=== PATIENT | female | born 1970 | race Caucasian/White ===

== ENCOUNTER → 2022-06-11 09:20 | Outpatient (CLI) | payer OTHER, SELFPAY ==
--- NOTE | 2022-06-11 | DI.RAD.S_ITS ---
PROCEDURE: XR FOOT LT MIN 3V INDICATIONS: PAIN IN LEFT FOOT TECHNIQUE: 3 views of the foot were acquired. COMPARISON: None. FINDINGS: Bones: No fractures or dislocations. No suspicious bony lesions. 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 Soft tissues: No tibiotalar joint effusion. Achilles tendon appears normal. IMPRESSION: No acute osseous abnormalities. Mild degenerative joint disease. Dictated by: Barbara Banegas M.D. on 06/11/2022 at 13:00 Approved by: Barbara Banegas M.D. on 06/11/2022 at 13:04
== END ==
PROVIDERS: Referring Provider Podiatrist; Visit Provider Podiatrist
DX: M19.072 Primary osteoarthritis, left ankle and foot (principal); M79.672 Pain in left foot
CPT/HCPCS: 73630

== ENCOUNTER 2024-05-04 07:15 | Day surgery (SDC) | payer OTHER, SELFPAY ==
--- NOTE | 2024-05-04 | PATH_ITS ---
[facility] Accession Number: [id number] No. of containers..02 Tissue . 01 Material submitted: . PART A: small bowel - SMALL BOWEL PART B: gastrointestinal site - GASTRIC . 01 Clinical history: . B: R/O H P . 01 Diagnosis: A. Duodenum, biopsy: - Small bowel mucosa with preserved villous architecture, negative for histologic evidence of celiac disease. - Negative for dysplasia or malignancy. -- B. Stomach, biopsy: - Oxyntic gastric mucosa with unremarkable histology. - No H. Pylori like organisms identified (on the H/E- stained sections). - Negative for gastritis, intestinal metaplasia, dysplasia, or malignancy. ---- As part of our intradepartmental quality assurance associate, Dr. Nickerson reviewed part A and agreed with the above diagnosis. TXN 05/06/2024 1357 Local . 01 Electronically signed: . Carlos Rooney MD, Pathologist NPI- [id number] . 01 Gross description: . A. Received in formalin with two patient identifiers and small bowel, is a single lema soft tissue fragment 0.5 cm in greatest dimension. Submitted in cassette A1. B. Received in formalin with two patient identifiers and gastric, are two lema and brown soft tissue fragments 0.3 to 0.4 cm in greatest dimension. Submitted in cassette B1. ([id number]) /GRACIE 05/05/2024 0830 Local . 01 Pathologist provided ICD-10: Z86.0101, K21.9, R10.13, Z80.0 . 01 CPT . 664873, 733127 Specimen Comment: A courtesy copy of this report has been sent to [phone] Performed at: 01 [facility] [address] [address], [place], [place] [id number] MD Edmund Arriaza MD Phone: [phone]
[2024-05-04 07:41] VITALS: BP 114/75; PULSE 66; RESP 17; TEMP 36.1; O2SAT 99
--- NOTE | 2024-05-04 08:24 | PM.HP.1 ---
History of Present Illness History of Present Illness Date Patient Seen: 05/04/24 Chief complaint: SDC Narrative: Dyspepsia, GE reflux, and history of adenomatous colon polyps PFSH Social History Smoking Status: Never smoker alcohol intake: never Meds Home Medications and Allergies Home Medications Medication Instructions Recorded Confirmed Type estradiol 0.025 mg/24 hr weekly 1 patch topical 05/04/24 History transdermal patch progesterone micronized 200 mg 200 mg PO ONCE PM 05/04/24 05/04/24 History capsule Allergies Allergy/AdvReac Type Severity Reaction Status Date / Time No Known Drug Allergies Allergy Verified 05/04/24 07:28 Exam Vital Signs (past 8 hours): - 05/04/24 07:41 Temperature 97 F L Pulse Rate 66 Respiratory Rate 17 Blood Pressure 114/75 Pulse Oximetry 99 Oxygen Delivery Method Room Air Oxygen Delivery Method Room Air Narrative Exam Narrative: Oropharynx free of lesions Assessment & Plan Assessment & Plan narrative: Dyspepsia and GE reflux need for upper endoscopy. Risks, benefits, alternatives have been explained. History of adenomatous colon polyp. Repeat colonoscopy necessary. Risks, benefits, alternatives have been explained. Time-Based Coding :: [TOTAL MINUTES] spent with patient and on the chart (including review of chart, obtaining history, exam, reviewing outside data, placing orders, documenting exam and treatment plan, and counseling patient) on [DATE].
--- NOTE | 2024-05-04 08:25 | PM.OP.EC ---
Operative Date/Time/Diagnoses Date of procedure: 05/04/24 Pre-op diagnosis: See indication and findings Procedure & Clinicians Study performed: EGD and colonoscopy Indications: Dyspepsia GE reflux and history of adenomatous colon polyps Surgeon: Miguel Perrin Procedure Notes Procedure in detail: After informed consent was obtained the patient was placed in left lateral decubitus position. Video upper scope was placed into the oropharynx and with the patient's help swallowed into the esophagus. The esophagus stomach and duodenal were carefully examined. On withdrawal retroflexed view the GE junction was performed. The scope was removed. The patient tolerated procedure well. The patient was then turned the colonoscope substituted. This is passed through the rectum to the cecum. Preparation was good. On slow withdrawal mucosa was carefully examined. The scope was removed. The patient tolerated the procedure well. Blood loss none Complications none Sedation mac Findings EGD 1. Completely normal esophagus with normal squamocolumnar junction 2. Patchy gastric erythema in the antrum. Biopsies taken to rule out Helicobacter 3. Normal duodenal bulb and sweep. Biopsies taken to rule out celiac Colonoscopy 1. Normal colonoscopy to cecum Patient should have follow-up colonoscopy in 5-7 years. We will follow up on the biopsies.
[2024-05-04 09:02] VITALS: BP 100/63; PULSE 74; RESP 14; TEMP 36.2; O2SAT 95
[2024-05-04 09:07] VITALS: BP 102/69; PULSE 63; RESP 16; TEMP 36.2; O2SAT 95
[2024-05-04 09:13] VITALS: BP 106/65; PULSE 87; RESP 16; TEMP 36.2; O2SAT 98
[2024-05-04 09:26] VITALS: BP 107/73; PULSE 61; RESP 16; TEMP 36.2; O2SAT 98
== END 2024-05-04 09:41 | disposition home or self-care (01) ==
PROVIDERS: Referring Provider Internal Medicine Gastroenterology; Visit Provider Internal Medicine Gastroenterology
PROC: 0DJ08ZZ Inspection of Upper Intestinal Tract, Via Natural or Artificial Opening Endoscopic (ICD-10-PCS; CPT 45378; principal; 2024-05-04 08:30)
PROC: 0DJD8ZZ Inspection of Lower Intestinal Tract, Via Natural or Artificial Opening Endoscopic (ICD-10-PCS; CPT 45378; 2024-05-04 08:30)
DX: Z12.11 Encounter for screening for malignant neoplasm of colon (principal); Z86.0100 Personal history of colon polyps, unspecified; K21.9 Gastro-esophageal reflux disease without esophagitis; R10.13 Epigastric pain
CPT/HCPCS: 45378; 43239; J2704